=== PATIENT | female | born 1980 | race Caucasian/White ===

== ENCOUNTER 2021-06-04 10:34 | Outpatient (CLI) | payer OTHER, SELFPAY ==
[2021-06-04] VITALS (7 sets, daily range): BP systolic 104–120; BP diastolic 60–77; PULSE 83–90; RESP 16; TEMP 36.9; BMI 37.0
[2021-06-04 11:48] LABS: Basophils Percent Auto 0.3 % (0.2-1.2); Eosinophils Absolute Auto 0.2 K/mm3 (0-0.3); Eosinophils Percent Auto 3.3 % (0-4.4); Hematocrit 32.5 % (37.0-47.0); Hemoglobin 10.1 g/dL (12.0-15.0); Immature Granulocyte Absolute 0.03 K/mm3 (0.00-0.031); Immature Granulocyte Percent A 0.4 % (0-0.5); Lymphocytes Absolute Auto 1.47 K/mm3 (0.9-3.2); Lymphocytes Percent Auto 20.2 % (18.3-44.2); Mean Corpuscular HGB Conc 31.1 g/dl (32-36); Mean Corpuscular Hemoglobin 26.6 pg (26-34); Mean Corpuscular Volume 85.5 fl (80-100); Mean Platelet Volume 11.7 fl (7.4-10.4); Monocytes Absolute Auto 0.7 K/mm3 (0.1-0.6); Monocytes Percent Auto 9.8 % (2.6-8.5); Neutrophils Absolute Auto 4.8 K/mm3 (1.3-6.7); Platelet Count Result 222 k/mm3 (150-375); Red Cell Distribution Width 16.5 % (11.5-14.5); White Blood Count 7.3 K/mm3 (4.5-10.0)
[2021-06-04 11:58] LABS: Add Urine Microscopic? YES; Alanine Aminotransferase 8 U/L (4-35); Albumin Level 3.3 g/dL (3.5-5.1); Alkaline Phosphatase 164 U/L (38-126); Anion Gap 5 mmol/L (8-16); Appearance Urine Clear (Clear); Aspartate Amino Transferase 18 U/L (14-36); Bacteria Urine Trace /hpf; Bilirubin Urine Negative (Negative); Bilirubin,Total 0.1 mg/dL (0.2-1.3); Blood Urea Nitrogen 3 mg/dL (7-17); Blood Urine 1+ (Negative); Calcium 9.1 mg/dL (8.4-10.2); Carbon Dioxide 26 mmol/L (22-30); Chloride 104 mmol/L (98-107); Color Urine Straw (Yellow); Estimated Glomerular Filt Rate > 60; Glucose 78 mg/dL (65-110); Glucose Urine UA Negative (Negative); Ketones Urine Negative (Negative); Leukocyte Esterase Ur Negative LEU/UL (Negative); Mucus Urine Rare /lpf; Nitrate Urine Negative (Negative); Potassium 3.6 mmol/L (3.4-5.0); Protein Urine Negative (Negative); RBC Urine 0-2 /hpf (0-2); Sodium 135 mmol/L (137-145); Squamous Epithelial Cell Urine Rare /hpf (Few); Uric Acid 4.8 mg/dL (2.5-7.5); Urobilinogen Urine Negative mg/dL (<2.0); WBC Urine 0-3 /hpf
[2021-06-04 12:00] LABS: Creatinine Urine 23.6 mg/dL; Total Protein Urine Random 15 mg/dL; Ur Ttl Prot Creatinine Ratio 0.64 mg/mg (0-0.20)
[2021-06-04 12:08] LABS: Specific Grav Ur 1.003 (1.001-1.035)
--- NOTE | 2021-06-04 12:23 | PC.NURSE ---
Dr. Lopez informed of BP's, labs, headache since Monday that subsides with Tylenol- but comes back, edema, and reactive NST. Order received to discharge to complete 24 hr urine at home.
== END 2021-06-04 12:50 | disposition home or self-care (01) ==
LOC: ANHOBOP 10:41 → ANHOBPP 10:42
PROVIDERS: Visit Provider Obstetrics & Gynecology Gynecology
DX: O13.9 Gestational [pregnancy-induced] hypertension without significant proteinuria, unspecified trimester (principal); Z3A.00 Weeks of gestation of pregnancy not specified
CPT/HCPCS: 36415; 59025; 80053; 81001; 82570; 84156; 84550; 85025; 99199

== ENCOUNTER 2021-06-05 12:38 | Outpatient (NON) | payer OTHER, SELFPAY ==
[2021-06-05 12:41] VITALS: BMI 35.3
[2021-06-05 13:08] LABS: Collection Time Urine 24 HOURS
[2021-06-05 13:17] LABS: Creatinine Urine 48.9 mg/dL; Patient Weight 180 Lbs; Total Protein Urine Random 19 mg/dL
[2021-06-05 13:21] LABS: Creatinine Clearance Urine 158.5 ml/min (75-125); Total Protein Urine 24 Hr 364 mg/24hr (28-141); Total Volume 24 Hour Urine 1920 ml
--- NOTE | 2021-06-05 18:12 | WPDANESEPP ---
Anes - Eval Pre Procedure Procedure: repeat c section Date/Time: 06/05/21 18:12 Surgeon: harish Preop Diagnosis: previous c section Pre Op Diagnosis: HIP Patient Data Age: 40 Gender: F Height: 1.52 m Weight: 82 kg Allergies Allergy/AdvReac Type Severity Reaction Status Date / Time No Known Allergies Allergy Verified 11/02/16 15:42 Home Medications Medication Instructions Recorded Confirmed Type PNV cmb#95-ferrous fumarate-FA 1 tablet PO DAILY 05/27/21 06/04/21 History [] sertraline 100 mg PO DAILY 05/27/21 06/04/21 History ferrous sulfate 325 mg PO BID 06/04/21 06/04/21 History Laboratory Tests 06/04/21 12:43 U Random Total Protein 19 mg/dL mg/dL Ur 24 Hour Volume 1920 ml ml Urine Creatinine 48.9 mg/dL mg/dL Creatinine Clearance 158.5 ml/min H ml/min (75-125) Ur Total Protein 24 Hr 364 mg/24hr H mg/24hr (28-141) Patient hx anesthesia problems: none Family hx anesthesia problems: none Results Review: All pre-operative results and documents have been reviewed as part of the pre-operative evaluation. [facility] Family History Family History (Updated 05/27/21 @ 13:24 by Roberto Salamanca RN) Other No pertinent family history Social History Social History Substance use: never Spiritual care concerns: No Exam Day of Procedure 06/05/21 18:12
== END 2021-06-05 12:39 | disposition home or self-care (01) ==
PROVIDERS: Visit Provider Obstetrics & Gynecology Gynecology
DX: O13.9 Gestational [pregnancy-induced] hypertension without significant proteinuria, unspecified trimester (principal); Z3A.00 Weeks of gestation of pregnancy not specified
CPT/HCPCS: 81050; 82575; 84156

== ENCOUNTER 2021-06-06 09:13 | Inpatient (IN) | payer OTHER, SELFPAY ==
[2021-06-06] VITALS (55 sets, daily range): BP systolic 68–137; BP diastolic 39–79; PULSE 60–101; RESP 16–21; TEMP 35.7–36.7; O2SAT 92–100; BMI 33.1
--- NOTE | 2021-06-06 09:34 | LDADM ---
This patient, Elmira Okeefe, was admitted to Labor/Delivery/Recovery 120 on 06/06/21 at 09:13. Plans for labor, pain management and were discussed with patient. Patient/family oriented to hospital policies and general routines including ID bracelet, bed and alarms, visiting hours, pain management, procedures, bathroom and other care routines, personal items, smoking policy, room service/diet and guest tray routines, security routines, and visiting hours. Patient/Family are encouraged to report perceived risks to care and to ask questions if they do not understand what they are told or what they should do. See OBIX for further documentation.
[2021-06-06] MEDS: LACTATED RINGERS 1,000 ML 125 ML IV CONT (09:42)
[2021-06-06 10:06] LABS: Basophils Percent Auto 0.3 % (0.2-1.2); Eosinophils Absolute Auto 0.2 K/mm3 (0-0.3); Eosinophils Percent Auto 1.9 % (0-4.4); Hematocrit 32.9 % (37.0-47.0); Hemoglobin 10.2 g/dL (12.0-15.0); Immature Granulocyte Absolute 0.02 K/mm3 (0.00-0.031); Immature Granulocyte Percent A 0.3 % (0-0.5); Lymphocytes Absolute Auto 1.65 K/mm3 (0.9-3.2); Lymphocytes Percent Auto 20.9 % (18.3-44.2); Mean Corpuscular Hemoglobin 26.5 pg (26-34); Mean Corpuscular Volume 85.5 fl (80-100); Mean Platelet Volume 12.1 fl (7.4-10.4); Monocytes Absolute Auto 0.6 K/mm3 (0.1-0.6); Monocytes Percent Auto 7.6 % (2.6-8.5); Neutrophils Absolute Auto 5.4 K/mm3 (1.3-6.7); Platelet Count Result 231 k/mm3 (150-375); Red Blood Count 3.85 M/mm3 (4.2-5.4); Red Cell Distribution Width 16.8 % (11.5-14.5); White Blood Count 7.9 K/mm3 (4.5-10.0)
[2021-06-06 10:15] LABS: Alanine Aminotransferase 10 U/L (4-35); Albumin Level 3.6 g/dL (3.5-5.1); Alkaline Phosphatase 165 U/L (38-126); Anion Gap 6 mmol/L (8-16); Aspartate Amino Transferase 23 U/L (14-36); Bilirubin,Total 0.4 mg/dL (0.2-1.3); Blood Urea Nitrogen 4 mg/dL (7-17); Calcium 8.4 mg/dL (8.4-10.2); Carbon Dioxide 21 mmol/L (22-30); Chloride 109 mmol/L (98-107); Estimated CRCL calculation 181 ml/min; Estimated Glomerular Filt Rate > 60; Glucose 79 mg/dL (65-110); Potassium 3.8 mmol/L (3.4-5.0); Sodium 136 mmol/L (137-145); Uric Acid 4.7 mg/dL (2.5-7.5)
--- NOTE | 2021-06-06 10:19 | PM.IMHP ---
H&P: HPI History of Present Illness Date/Time: 06/06/21 10:19 Chief Complaint: Preeclampsia at 37 weeks Narrative: the patient is a 40-year-old 3 para 2 admitted at 37 weeks for repeat section and bilateral tubal ligation secondary to diagnosis yesterday evening of preeclampsia. Patient has currently no symptoms of preeclampsia. She reports good movement. labs A positive; rubella immune; RPR negative; HIV negative; hepatitis-B surface antigen negative; group B strep negative. patient is advanced maternal age and declined level 2 ultrasound. NIPT is negative. Review of Systems Review of Systems: No complaints PMFSH Past Medical History Medical History (Updated 06/06/21 @ 10:25 by Gertrude Lopez MD) Migraine (normal spontaneous vaginal delivery) forceps assisted vaginal delivery resulting in 4thdegree laceration with an 8lb 2oz Surgical History Surgical History (Updated 06/06/21 @ 10:25 by Gertrude Lopez MD) History of Family History Family History (Updated 05/27/21 @ 13:24 by Roberto Salamanca RN) Other No pertinent family history Social History Social History Smoking status: Never smoker Substance use: never Spiritual care concerns: No Meds Home Medications and Allergies Home Medications Medication Instructions Recorded Confirmed Type PNV cmb#95-ferrous fumarate-FA 1 tablet PO DAILY 05/27/21 06/06/21 History [] sertraline 100 mg PO DAILY 05/27/21 06/06/21 History ferrous sulfate 325 mg PO BID 06/04/21 06/06/21 History Allergies Allergy/AdvReac Type Severity Reaction Status Date / Time No Known Allergies Allergy Verified 11/02/16 15:42 Vital Signs Vital Signs - 24 hr 06/06/21 09:40 Pulse Rate 90 Blood Pressure 137/78 Exam Const: General: healthy appearing and alert Orientation/consciousness: patient oriented x3 Resp: Effort & Inspection: normal respiratory effort Auscultation: clear to auscultation bilaterally Cardio: Rate: regular rate Rhythm: regular rhythm GI: GI Palp: Yes Soft to palpation and No Tenderness to palpation present (GI) Other: heart tones reactive Neuro: General: patient oriented x3 H&P: Results Labs Labs: Short CBC 06/06/21 Range/Units 09:27 WBC 7.9 (4.5-10.0) K/mm3 Hgb 10.2 L (12.0-15.0) g/dL Hct 32.9 L (37.0-47.0) % Plt Count 231 (150-375) k/mm3 BMP 06/06/21 09:32 Sodium 136 L Potassium 3.8 Chloride 109 H Carbon Dioxide 21 L BUN 4 L Creatinine 0.30 L Glucose 79 Calcium 8.4 Liver Function 06/06/21 Range/Units 09:32 Total Bilirubin 0.4 (0.2-1.3) mg/dL AST 23 (14-36) U/L ALT 10 (4-35) U/L Alkaline Phosphatase 165 H (38-126) U/L Albumin 3.6 (3.5-5.1) g/dL Assessment and Plan Assessment and plan (1) 37 weeks gestation of : Code(s): Z3A.37 - 37 weeks gestation of Status: Acute (2) Preeclampsia: Code(s): O14.90 - Unspecified pre-eclampsia, unspecified trimester Status: Acute Assessment and Plan: plan to proceed with delivery by repeat (3) History of : Code(s): Z98.891 - History of uterine scar from previous surgery Status: Inactive (4) Encounter for sterilization: Code(s): Z30.2 - Encounter for sterilization Status: Acute Assessment and Plan: plan to proceed with bilateral tubal ligation
--- NOTE | 2021-06-06 10:30 | WPDANESEFPP ---
Anes - Eval Final PreProcedure Day of Procedure 06/06/21 10:30 Patient weight: obese Heart: regular rate and rhythm Lungs: clear to auscultation and normal air movement Airway: Mallampati scale class II Neurological: alert and oriented Last oral intake: >/= 8 hours ASA classification: II Emergent: no Anesthetic plan: proceed Anesthesia type and monitoring: regional spinal Results Review: All pre-operative results and documents have been reviewed as part of the pre-operative evaluation. Informed Consent: The patient's anesthetic plan and its attendant risks and benefits were discussed with the patient/family/POA. Questions were solicited and answers provided to the satisfaction of the patient/family/POA.
[2021-06-06] MEDS: ceFAZolin 2 GM/D5W 50 ML 2 GM/50 ML BAG IVPB (10:41)
[2021-06-06 10:55] LABS: HIV 1/2 Ab P24 Ag Result Negative (Negative)
--- NOTE | 2021-06-06 11:27 | W.PM.PROC2 ---
Procedure Note - Detailed Date of Procedure 06/06/21 Pre-op Diagnosis Intrauterine at 37 weeks preeclampsia previous section requests sterilization Post-op Diagnosis Same Procedure Performed repeat low transverse section and bilateral tubal ligation Surgeon Gertrude Lopez MD Anesthesia Spinal Findings Poorly healed scar from prior abdominoplasty. The male is in vertex position, weighing 5lb 15oz. Nuchal cord x1 reduced. Apgars were 5 [id number] 6 [id number] 7 [id number] and 8 [id number]. Normal-appearing tubes ovaries and uterus. Description of Procedure The patient was taken to the operating room and placed under spinal anesthesia in the dorsal lithotomy position. The middle portion of the previous abdominoplasty scar is removed in an elliptical fashion. The fascia is then nicked in the midline and extended laterally using Belcher scissors. The [facility] was used to tent the fascia which was dissected off using sharp dissection. The peritoneum was tented and entered with Metzenbaum scissors. The incision was extended with blunt traction. The bladder blade is placed. The vesicouterine peritoneum was tented and entered with Metzenbaum scissors. The incision was extended laterally. The bladder flap was created digitally. The bladder blade is replaced. The lower uterine segment was incised in a transverse fashion with the scalpel. The incision was extended laterally using blunt traction. Membranes were ruptured and clear fluid is noted. The 's head was brought up into the incision and the delivered while the graduate assistant athletic trainer applied fundal pressure. Nuchal cord x1 was reduced. The remainder of the is fully delivered. The cord was clamped and cut the handed to the waiting nursery nurse. The placenta was removed using manual traction after cord gases and blood were taken. The uterus is cleared of all clots and debris and exteriorized. The uterine incision was closed using 0 Monocryl in a running locked fashion. The same suture was used to imbricate. One additional [id number] suture was required in the midline for hemostasis. The patient was asked and responded yes to wishing to proceed with tubal ligation. The right tube was grasped with a Atul and crossclamped using a Z clamp. The distal 2/3 of the tube were excised. The pedicle was tied off using 0 Vicryl in a Melody stitch as well as a free tied. The identical procedure was performed on the left side. Good hemostasis is noted at both tubal sites and the uterine incision. The cul-de-sac is irrigated. The uterus was returned to the abdomen. The incisions are again inspected and all noted to be hemostatic. The fascia was then closed using 0 Vicryl in a running fashion. Subcutaneous tissues are irrigated made hemostatic using Bovie cautery subcuticular layer was closed using 2-0 Monocryl in a running stitch. The skin is closed using Insorb barbara with Dermaflex over the incision. Sponge, needle, and instrument counts are correct per the OR staff. Patient received Ancef prior to incision. Patient is taken to recovery in stable condition. Estimated Blood Loss 315 Drains Yes ( Arriola catheter) Pathology Yes ( placenta and bilateral tubes) Complications No immediate complications Condition Stable Disposition Floor
--- NOTE | 2021-06-06 11:34 | PM.OBDSVD ---
DS: Admitting Diagnosis Discharge Date 06/08/21 Admitting Diagnosis intrauterine at 37 weeks preeclampsia previous section request sterilization DS: Discharge Diagnosis Discharge Diagnosis (1) Encounter for sterilization: Code(s): Z30.2 - Encounter for sterilization Status: Acute (2) Preeclampsia: Code(s): O14.90 - Unspecified pre-eclampsia, unspecified trimester Status: Acute (3) 37 weeks gestation of : Code(s): Z3A.37 - 37 weeks gestation of Status: Acute (4) delivery delivered: Code(s): O82 - Encounter for delivery without indication Status: Acute OB - DS: Summary OB Procedures : Ultrasound OB Procedures Intrapartum: low cervical, transverse and Tubal ligation OB Procedures: : None Peripartum Data Delivery Method: Section Procedures: Procedures Operation Date: 06/06/21 11:00 <No data on this case meets the specified criteria> Operation Date: 06/21/21 09:00 <No data on this case meets the specified criteria> complications: none Status at Discharge Functional status at discharge: independent ambulation Overall status at discharge: patient is progressing back to baseline Time Spent with Patient Time attestation: Total time spent providing and/or coordinating discharge services: DS: Data Data Completed and Pending Labs on day of discharge: Labs from last 24 hours 06/06/21 06/06/21 06/06/21 09:32 09:27 09:27 WBC RBC Hgb Hct MCV MCH MCHC RDW Plt Count MPV Immature Gran % (Auto) Neut % (Auto) Lymph % (Auto) [place] % (Auto) Eos % (Auto) Baso % (Auto) Lymph # (Auto) [place] # (Auto) Eos # (Auto) Baso # (Auto) Abs Immat Gran (auto) Absolute Neuts (auto) Absolute Nucleated RBC Nucleated RBC % Sodium 136 L Potassium 3.8 Chloride 109 H Carbon Dioxide 21 L Anion Gap 6 L BUN 4 L Creatinine 0.30 L Estim Creat Clear Calc 181 Estimated GFR > 60 Glucose 79 Uric Acid 4.7 Calcium 8.4 Total Bilirubin 0.4 AST 23 ALT 10 Alkaline Phosphatase 165 H Total Protein 7.0 Albumin 3.6 RPR HIV 1&2 Ab/P24 Ag 4thGn Negative Blood Type A Positive Antibody Screen Negative 06/06/21 06/06/21 09:27 09:27 WBC 7.9 RBC 3.85 L Hgb 10.2 L Hct 32.9 L MCV 85.5 MCH 26.5 MCHC 31.0 L RDW 16.8 H Plt Count 231 MPV 12.1 H Immature Gran % (Auto) 0.3 Neut % (Auto) 69.0 Lymph % (Auto) 20.9 [place] % (Auto) 7.6 Eos % (Auto) 1.9 Baso % (Auto) 0.3 Lymph # (Auto) 1.65 [place] # (Auto) 0.6 Eos # (Auto) 0.2 Baso # (Auto) 0.0 Abs Immat Gran (auto) 0.02 Absolute Neuts (auto) 5.4 Absolute Nucleated RBC 0.0 Nucleated RBC % 0.0 Sodium Potassium Chloride Carbon Dioxide Anion Gap BUN Creatinine Estim Creat Clear Calc Estimated GFR Glucose Uric Acid Calcium Total Bilirubin AST ALT Alkaline Phosphatase Total Protein Albumin RPR Pending HIV 1&2 Ab/P24 Ag 4thGn Blood Type Antibody Screen Discharge Plan Discharge Attending physician on discharge: Gertrude Lopez Discharging Clinician: Gertrude Lopez Anticipated Discharge Date/Time: 06/09/21 11:35 Patient Disposition: Home, Self-Care Activity: may shower, may drive after 2 weeks and pelvic rest Diet: regular Wound Care Instructions: incision open to air Patient Instructions: Antibiotic Form Stand Alone Forms: General Discharge Information Follow-up/Referrals: Gertrude Lopez MD [Physician] - 1 Week (and 6 week) Discharge Medications: New hydrocodone-acetaminophen 5-325 mg Tablet 1 tablet PO Q3H PRN (Reason: Moderate Pain (4-6)) Qty: 20 RF: 0 Continued sertraline 100 mg Tablet 100 mg PO DAILY RF: 0 PNV cmb#95-
[2021-06-06] MEDS: OXYTOCIN 30 UNITS/NS 500 ML 30 UNITS/500 ML BAG 125 UNITS IV CONT (12:11)
[2021-06-06] MEDS: LORATADINE 10 MG TABLET PO (12:11)
--- NOTE | 2021-06-06 14:00 | PC.NURSE ---
Patient transferred to post room #281 via stretcher. Support person present. Oriented to unit, room, information board, rooming in, admission packet and security measures. Patient verbalizes understanding.
[2021-06-06] MEDS: KETOROLAC 30 MG/ML VIAL (*BKC) IV PUSH (14:42)
[2021-06-06] MEDS: DEXTROSE 5%/0.45% SOD CHL 1,000 ML 125 ML IV CONT (17:09)
[2021-06-07 00:05] VITALS: BP 99/55; PULSE 86; RESP 18; TEMP 36; O2SAT 98
[2021-06-07] MEDS: KCL 20 MEQ/D5/0.45% SOD CHL 1,000 ML 125 ML IV CONT (00:10)
[2021-06-07 04:15] VITALS: BP 90/55; PULSE 88; RESP 18; TEMP 36.3; O2SAT 97
[2021-06-07] MEDS: IBUPROFEN 600 MG TABLET PO ×3 (04:49→16:11)
[2021-06-07 05:04] LABS: Basophils Percent Auto 0.3 % (0.2-1.2); Eosinophils Absolute Auto 0.1 K/mm3 (0-0.3); Eosinophils Percent Auto 1.6 % (0-4.4); Hematocrit 28.2 % (37.0-47.0); Hemoglobin 8.8 g/dL (12.0-15.0); Immature Granulocyte Absolute 0.03 K/mm3 (0.00-0.031); Immature Granulocyte Percent A 0.4 % (0-0.5); Lymphocytes Absolute Auto 1.32 K/mm3 (0.9-3.2); Lymphocytes Percent Auto 16.6 % (18.3-44.2); Mean Corpuscular HGB Conc 31.2 g/dl (32-36); Mean Corpuscular Hemoglobin 26.7 pg (26-34); Mean Corpuscular Volume 85.5 fl (80-100); Mean Platelet Volume 12.3 fl (7.4-10.4); Monocytes Absolute Auto 0.7 K/mm3 (0.1-0.6); Monocytes Percent Auto 8.7 % (2.6-8.5); Neutrophils Absolute Auto 5.8 K/mm3 (1.3-6.7); Neutrophils Percent Auto 72.4 % (45.5-73.1); Platelet Count Result 192 k/mm3 (150-375); Red Cell Distribution Width 16.7 % (11.5-14.5)
[2021-06-07 08:25] VITALS: BP 79/47; PULSE 83; RESP 16; TEMP 36.6; O2SAT 97
[2021-06-07] MEDS: DOCUSATE SODIUM 100 MG CAPSULE PO ×2 (08:37→16:10)
[2021-06-07] MEDS: POLYSACCHARIDE IRON COMPLEX 150 MG CAPSULE PO ×2 (08:37→16:10)
[2021-06-07] MEDS: SERTRALINE HCL 50 MG TABLET 100 MG PO (08:38)
[2021-06-07] MEDS: MULTIVIT/MIN/PREN/FOL AC/IRON TABLET 1 TAB PO (08:38)
--- NOTE | 2021-06-07 08:39 | PM.OBPNVD ---
OB - PN: Subj Subjective Date/time seen: 06/07/21 08:39 Patient comments: no complaints and pain well controlled baby status: doing well OB - PN: Obj Data Labs CBC & Chem 7: 06/07/21 04:15 06/06/21 09:32 Labs: Laboratory Results - last 24 hr 06/06/21 06/06/21 06/06/21 09:27 09:27 09:27 WBC 7.9 RBC 3.85 L Hgb 10.2 L Hct 32.9 L MCV 85.5 MCH 26.5 MCHC 31.0 L RDW 16.8 H Plt Count 231 MPV 12.1 H Immature Gran % (Auto) 0.3 Neut % (Auto) 69.0 Lymph % (Auto) 20.9 [place] % (Auto) 7.6 Eos % (Auto) 1.9 Baso % (Auto) 0.3 Lymph # (Auto) 1.65 [place] # (Auto) 0.6 Eos # (Auto) 0.2 Baso # (Auto) 0.0 Abs Immat Gran (auto) 0.02 Absolute Neuts (auto) 5.4 Absolute Nucleated RBC 0.0 Nucleated RBC % 0.0 Sodium Potassium Chloride Carbon Dioxide Anion Gap BUN Creatinine Estim Creat Clear Calc Estimated GFR Glucose Uric Acid Calcium Total Bilirubin AST ALT Alkaline Phosphatase Total Protein Albumin HIV 1&2 Ab/P24 Ag 4thGn Negative Blood Type A Positive Antibody Screen Negative 06/06/21 06/07/21 09:32 04:15 WBC 8.0 RBC 3.30 L Hgb 8.8 L Hct 28.2 L MCV 85.5 MCH 26.7 MCHC 31.2 L RDW 16.7 H Plt Count 192 MPV 12.3 H Immature Gran % (Auto) 0.4 Neut % (Auto) 72.4 Lymph % (Auto) 16.6 L [place] % (Auto) 8.7 H Eos % (Auto) 1.6 Baso % (Auto) 0.3 Lymph # (Auto) 1.32 [place] # (Auto) 0.7 H Eos # (Auto) 0.1 Baso # (Auto) 0.0 Abs Immat Gran (auto) 0.03 Absolute Neuts (auto) 5.8 Absolute Nucleated RBC 0.0 Nucleated RBC % 0.0 Sodium 136 L Potassium 3.8 Chloride 109 H Carbon Dioxide 21 L Anion Gap 6 L BUN 4 L Creatinine 0.30 L Estim Creat Clear Calc 181 Estimated GFR > 60 Glucose 79 Uric Acid 4.7 Calcium 8.4 Total Bilirubin 0.4 AST 23 ALT 10 Alkaline Phosphatase 165 H Total Protein 7.0 Albumin 3.6 HIV 1&2 Ab/P24 Ag 4thGn Blood Type Antibody Screen OB - PN A/P Assessment and Plan (1) delivery delivered: Code(s): O82 - Encounter for delivery without indication Status: Acute (2) Preeclampsia: Code(s): O14.90 - Unspecified pre-eclampsia, unspecified trimester Status: Acute Assessment and Plan: Final signs are stable and good diuresis (3) Encounter for sterilization: Code(s): Z30.2 - Encounter for sterilization Status: Acute Plan day: 1 Plan: routine care Time Spent With Patient Time: Total time spent is greater than 50% in coordination of care (as documented) at patient's floor/unit and/or counseling patient: Exam Narrative: Incision clean dry and intact : Bimanual exam- vagina & uterus: other (Uterus firm, nt @U)
[2021-06-07 09:13] LABS: Rapid Plasma Reagin Non-Reactive (NonReactive)
[2021-06-07] MEDS: HYDROcodone/acetaminophen (*CRX) 5-325 MG TABLET 1 TAB PO ×3 (10:34→19:17)
[2021-06-07 11:45] VITALS: BP 91/58; PULSE 94; RESP 20; TEMP 36.9; O2SAT 96
--- NOTE | 2021-06-07 11:53 | WPDANLDPN2 ---
Anes-Prog Note L&D Date/Time: 06/07/21 11:53 Comfortable throughout: section Neuraxial method: spinal Epidural/Spinal procedure site: clean & non-tender Neuro status: Neuro function grossly intact. Cardiovascular status: normal Respiratory status: normal Airway patency: baseline Mental status: baseline Post-Op hydration status: normal Vital Signs: Last Vital Signs Temp 36.9 C 06/07/21 11:45 Pulse 94 06/07/21 11:45 Resp 20 06/07/21 11:45 BP 91/58 L 06/07/21 11:45 Pulse Ox 96 06/07/21 11:45 Pain score (VAS): 02/15 I/O: Intake & Output 06/06/21 06/07/21 06/07/21 23:59 07:59 15:59 Intake Total 360 1655 240 Output Total 300 2000 Balance 60 -345 240 Post-procedural complaints: none Patient feedback: Patient satisfied with anesthetic care.
--- NOTE | 2021-06-07 11:53 | WPDANLDNPN2 ---
Anes-Prog Note L&D-Neuraxial Date/Time: 06/07/21 11:53 Neuraxial medications: intrathecal PF morphine Opiod-related complaints: none Patient feedback: Patient satisfied with post-operative pain management.
--- NOTE | 2021-06-07 14:42 | PC.NURSE ---
[id number] Introductions were made, then consulted with patient to assess needs related to . Mother led the conversation with her experience feeding her so far. Mother works well with her with encouragement and education. Encouraged understanding of the benefits of skin to skin (unwrapping and placing vertically on her chest), responsive feeding and how to watch for early feeding signs, frequency of feeding on demand about every 8-12 times in 24 hours (every 2-3 hours), milk production, duration of feeding, signs of adequate intake/output and how to record on the feeding sheet. Reviewed positioning and ear, shoulder, hip alignment, supporting the breast, asymmetrical latch (off-center), and leading with the chin with a big open side gape. Infant latched optimally to the left breast in football position. Education given to mother of how to visualize suck/swallow ratios and drinking at the breast. Infant was able to maintain latch without discomfort to mother. Nipple care reviewed with optimal latch and good positioning. Reviewed good handwashing when or touching the breast/nipples to prevent infection. Discussed stimulating techniques to wake 37 week delivered to breastfeed being assertive with encouraging drinking at the breast. Resources used to facilitate learning were used with the visual handouts/mom and baby guide. Mother voiced understanding of responsive feedings, stimulating with skin to skin, hand expressed colostrum, touch, talking to to encourage if it has been 2 -3 hours since the start of the last , to call if infant does not latch or there is discomfort with . Reported to the primary RN.
[2021-06-07 16:00] VITALS: BP 100/46; PULSE 88; RESP 16; TEMP 36.2; O2SAT 99
[2021-06-07 19:15] VITALS: BP 123/87; PULSE 75; RESP 16; TEMP 36.5; O2SAT 98
[2021-06-08 00:40] VITALS: BP 121/77; PULSE 80; RESP 16; TEMP 36.9; O2SAT 98
[2021-06-08] MEDS: IBUPROFEN 600 MG TABLET PO ×3 (00:44→13:38)
[2021-06-08] MEDS: HYDROcodone/acetaminophen (*CRX) 10-325 MG TABLET 1 TAB PO (00:45)
[2021-06-08 04:00] VITALS: BP 113/77; PULSE 80; RESP 16; TEMP 36.7; O2SAT 97
[2021-06-08] MEDS: HYDROcodone/acetaminophen (*CRX) 5-325 MG TABLET 1 TAB PO ×3 (04:06→13:37)
[2021-06-08] MEDS: POLYSACCHARIDE IRON COMPLEX 150 MG CAPSULE PO (07:27)
[2021-06-08] MEDS: SERTRALINE HCL 50 MG TABLET 100 MG PO (07:27)
[2021-06-08] MEDS: MULTIVIT/MIN/PREN/FOL AC/IRON TABLET 1 TAB PO (07:27)
[2021-06-08] MEDS: DOCUSATE SODIUM 100 MG CAPSULE PO (07:27)
--- NOTE | 2021-06-08 07:38 | PM.OBPNVD ---
OB - PN: Subj Subjective Date/time seen: 06/08/21 07:38 Patient comments: no complaints and pain well controlled baby status: doing well OB - PN: Obj Data Labs CBC & Chem 7: 06/07/21 04:15 06/06/21 09:32 Labs: Laboratory Results - last 24 hr 06/06/21 09:27 RPR Non-reactive OB - PN A/P Plan day: 2 Plan: routine care and discharge home Time Spent With Patient Time: Total time spent is greater than 50% in coordination of care (as documented) at patient's floor/unit and/or counseling patient: Exam Narrative: inc c/d/i : Bimanual exam- vagina & uterus: other (Uterus firm, nt @U)
[2021-06-08 07:45] VITALS: BP 123/70; PULSE 89; RESP 18; TEMP 36.6; O2SAT 99
[2021-06-08 11:58] VITALS: BP 100/69; PULSE 80; RESP 16; TEMP 36.6; O2SAT 98
--- NOTE | 2021-06-08 15:08 | PC.NURSE ---
[id number] Mother verbalizes she is able to independently latch with appropriate positioning/alignment. She denies any nipple discomfort and is responsively . Infant is currently meeting outcomes for weight, output, jaundice and feeding frequencies of 8-12 times in 24 hours. Mother declines any additional assistance/education at this time. Mother is encouraged to call for assistance if her infant doesn?t latch or there is discomfort with latching. Mother voiced understanding of information shared and mom and baby guide reviewed for additional resource information . Reported to the primary RN. 1105 Mother latched infant independently to the right breast in football position with no discomfort or pain. Mother demonstrates stimulating infant to drink at the breast. Referred to [facility] website and mom and baby guide for resource information.
[2021-06-09 14:06] VITALS: BP 127/78; PULSE 87; RESP 20; TEMP 36.8; O2SAT 100
== END 2021-06-08 16:25 | disposition home or self-care (01) | DRG 785 ==
LOC: ANHLDR 11:35 → ANHOB2 14:26
PROVIDERS: Admitting Provider Obstetrics & Gynecology Gynecology; Visit Provider Obstetrics & Gynecology Gynecology
PROC: 10D00Z1 Extraction of Products of Conception, Low, Open Approach (ICD-10-PCS; CPT 59514; principal; 2021-06-06 11:00)
DX: O34.211 Maternal care for low transverse scar from previous cesarean delivery (principal); Z37.0 Single live birth; Z3A.37 37 weeks gestation of pregnancy; O14.94 Unspecified pre-eclampsia, complicating childbirth; O13.4 Gestational [pregnancy-induced] hypertension without significant proteinuria, complicating childbirth; O69.81X0 Labor and delivery complicated by cord around neck, without compression, not applicable or unspecified; Z30.2 Encounter for sterilization
CPT/HCPCS: 36415; 59025; 80053; 81001; 81050; 82570; 82575; 84156; 84550; 85025; 86592; 86703; 86850; 86900; 86901; 88302; 88307; 99199; A9270; G0432; J0690; J1200; J1885; J2274; J2405; J2590; J3010; J3480; J7120

== ENCOUNTER → 2021-09-02 15:12 | Outpatient (CLI) | payer OTHER, SELFPAY ==
--- NOTE | ~2021-09-02 | US_ITS ---
EXAMINATION: US pelvic complete DATE: 09/02/2021 15:36 INDICATION: Right adnexal fullness Comparison:No prior studies for comparison. TECHNIQUE: Multiple transabdominal and endovaginal sonographic images of the pelvis performed. FINDINGS: The uterus measures 10 x 4.4 x 5.3 cm. The endometrial complex measures 7 mm. The right ovary measures 4.5 x 2.9 x 2.3 cm and the left ovary measures 2.3 x 2.1 x 2.1 cm. There is a right ovarian cyst measuring 2.4 cm. There are small follicles in each ovary. Normal doppler signal in both ovaries. There is no free fluid in the pelvis. There are no abnormal masses seen on either side. IMPRESSION: 1. Right ovarian cyst measuring 2.4 cm. Reviewed, dictated and finalized at location A.
== END ==
PROVIDERS: PCP Nurse Practitioner; Visit Provider Nurse Practitioner
DX: R19.00 Intra-abdominal and pelvic swelling, mass and lump, unspecified site (principal); N83.201 Unspecified ovarian cyst, right side
CPT/HCPCS: 76856

== ENCOUNTER 2023-12-28 15:15 | Outpatient (CLI) | payer OTHER, SELFPAY ==
--- NOTE | ~2023-12-28 | MM_ITS ---
EXAMINATION: MM screening daniella BI w catrina HISTORY: Screening mammogram TECHNIQUE: Craniocaudal and mediolateral oblique 3-D tomosynthesis images were obtained and synthetic 2-D images were generated. CAD analysis was submitted and interpreted. COMPARISON: No prior mammogram is available for comparison at this institution. BREAST PARENCHYMAL COMPOSITION:Dense: The breasts are heterogeneously dense, which may obscure small masses. FINDINGS: No suspicious mass, calcification, or architectural distortion are identified in either blayne ast to suggest malignancy. There has been no suspicious interval change. IMPRESSION: No mammographic evidence of malignancy. Recommend routine screening mammography in one year. BI-RADS Category 1: Negative Reviewed, dictated and finalized at location . [employer]
== END 2023-12-28 15:16 | disposition home or self-care (01) ==
LOC: MICIMG 15:16
PROVIDERS: PCP Nurse Practitioner; Visit Provider Nurse Practitioner
DX: Z12.31 Encounter for screening mammogram for malignant neoplasm of breast (principal)
CPT/HCPCS: 77063; 77067